=== PATIENT | female | born 1955 | race Caucasian/White ===

== ENCOUNTER 2017-12-13 10:36 | Day surgery (SDC) | payer OTHER ==
[~2017-12-13] VITALS: Ht 162.6 cm; Wt 135.0 kg
[~2017-12-13 10:36] MED LIST: ACTIVE-Q200 MG PO; AMIT50 PO; AMLO5 PO; CHOL10002; Cipro500 MG PO; Cymbalta60 MG PO; FURO40 PO; Flomax0.4 MG PO; GLIP2.5ER PO; GLIP5ER PO; LOSA50 PO; Lipoic Acid1 GM MC; METF500 PO; OXYC5 PO; Percocet 10-321 EACH PO; Percocet 5-3251 EACH PO
== END 2017-12-13 22:53 | disposition home or self-care (01) ==
LOC: MHTC 10:36
PROC: B246ZZ4 Ultrasonography of Right and Left Heart, Transesophageal (ICD-10-PCS; principal; 2017-12-13)
DX: R06.02 Shortness of breath (principal); R53.83 Other fatigue; H34.9 Unspecified retinal vascular occlusion; I10 Essential (primary) hypertension; E11.9 Type 2 diabetes mellitus without complications; R60.0 Localized edema; E78.5 Hyperlipidemia, unspecified; E66.01 Morbid (severe) obesity due to excess calories; Z87.891 Personal history of nicotine dependence
CPT/HCPCS: 82947; 93312; 93325; 99152; J7120

== ENCOUNTER → 2018-01-13 | Outpatient (CLI) | payer OTHER ==
[2018-01-13 15:31] LABS: Hematocrit 39.3 % (33.0-51.0); Hemoglobin 13.1 g/dL (11.5-16.0); Mean Corpuscular HGB 30.5 pg (26.0-34.0); Mean Corpuscular HGB Conc 33.3 g/dL (31.5-36.5); Mean Corpuscular Volume 92 fL (80-100); Mean Platelet Volume 10.1 fL (9.1-12.4); Platelet Count 302 K/mm3 (150-400); RDW Standard Deviation 46.4 fL (35.1-46.3); Red Blood Cell Count 4.29 M/mm3 (3.80-5.20); White Blood Cell Count 10.25 K/mm3 (4.00-11.30)
[2018-01-13 15:43] LABS: Albumin, Blood 3.3 g/dL (3.4-5.0); Albumin/Globulin Ratio 0.8 (0.8-1.8); Bilirubin, Total 0.4 mg/dL (0.1-1.0); Bun/Creatinine Ratio 27.5 (12.0-20.0); Calcium, Blood 8.9 mg/dL (8.5-10.1); Creatinine, Blood 1.02 mg/dL (0.40-1.00); Globulin, Blood 4.1 g/dL (2.2-4.0); Potassium, Blood 4.2 mmol/L (3.5-5.5); Total Protein, Blood 7.4 g/dL (6.4-8.2)
== END | disposition home or self-care (01) ==
LOC: LAB 15:15
PROVIDERS: Family Medicine
DX: E11.9 Type 2 diabetes mellitus without complications (principal); I10 Essential (primary) hypertension
CPT/HCPCS: 80053; 83036; 85027

== ENCOUNTER 2019-03-27 20:55 | Emergency (ER) | payer OTHER ==
[~2019-03-27] VITALS: Ht 162.6 cm; Wt 128.4 kg
[2019-03-27] MEDS ORDERED: Naprosyn500 MG PO (23:56)
== END 2019-03-28 00:02 | disposition home or self-care (01) ==
LOC: ER 20:55
DX: S80.01XA Contusion of right knee, initial encounter (principal); W18.30XA Fall on same level, unspecified, initial encounter; Z88.0 Allergy status to penicillin; Z88.8 Allergy status to other drugs, medicaments and biological substances; Z79.899 Other long term (current) drug therapy; Z79.84 Long term (current) use of oral hypoglycemic drugs; E11.9 Type 2 diabetes mellitus without complications; Z87.891 Personal history of nicotine dependence
CPT/HCPCS: 29505; 73564; 96372-59; 99283-25; J1885